=== PATIENT | female | born 1995 | race American Indian/Alaskan Native ===

== ENCOUNTER 2016-11-17 18:40 | Emergency (ER) | payer MEDICAID ==
[2016-11-17 18:46] VITALS: RESP 18; TEMP 98.6; O2SAT 100
[2016-11-17] MEDS ORDERED: Sodium Chloride 0.9% 1,000 ML IV STA (19:01)
--- NOTE | 2016-11-17 19:02 | ED PDOC ---
Arrival/HPI - General Chief Complaint: Flu-like Symptoms Time Seen by Provider: 11/17/16 18:50 Historian: Patient - History of Present Illness Narrative History of Present Illness (Text): 11/17/16 19:05 21 year old female, whose past medical history includes asthma, presents to emergency department complaining of flu-like symptoms for the past week. She states that she has migraines, on and off fevers, chills, nasal congestion, generalized weakness, and body aches. She denies any nausea, vomiting and any other complaints at this time. PMD: Dr. Tenorio Time/Duration: 1 week Symptom Onset: Gradual Symptom Course: Unchanged Activities at Onset: Light Context: Home Past Medical History - Provider Review Nursing Documentation Reviewed: Yes - Infectious Disease Hx of Infectious Diseases: None - Cardiac Hx Cardiac Disorders: No - Pulmonary Hx Respiratory Disorders: Yes Hx Asthma: Yes - Neurological Hx Neurological Disorder: No - HEENT Hx HEENT Disorder: No - Renal Hx Renal Disorder: No - Endocrine/Metabolic Hx Endocrine Disorders: No - Hematological/Oncological Hx Blood Disorders: No - Integumentary Hx Dermatological Disorder: No - Musculoskeletal/Rheumatological Hx Musculoskeletal Disorders: No - Gastrointestinal Hx Gastrointestinal Disorders: No - Genitourinary/Gynecological Hx Genitourinary Disorders: Yes Hx Urinary Tract Infection: Yes - Psychiatric Hx Psychophysiologic Disorder: Yes Hx Anxiety: Yes Hx Depression: Yes Hx Substance Use: Yes ("weed") - Anesthesia Hx Anesthesia: No Hx Anesthesia Reactions: No Family/Social History - Physician Review Nursing Documentation Reviewed: Yes Family/Social History: No Known Family HX Smoking Status: Never Smoked Hx Alcohol Use: Yes Frequency of alcohol use: Socially Hx Substance Use: Yes ("weed") Allergies/Home Meds Allergies/Adverse Reactions: Allergies Penicillins Allergy (Verified 11/17/16 18:47) ANAPHYLAXIS Home Medications: Home Meds Medication Instructions Recorded Confirmed Albuterol HFA [Ventolin HFA 90 1 puff IH PRN PRN 11/17/16 11/17/16 mcg/actuation (8 g)] Review of Systems - Physician Review All systems were reviewed & negative as marked: Yes Physical Exam - Physical Exam Narrative Physical Exam (Text): - Review of Systems Constitutional: Fevers, chills, generalized weakness absent: Fatigue, Weight Change Eyes: Normal ENT: nasal congestion Respiratory: Normal absent: SOB, Cough, Sputum Cardiovascular: Normal absent: Chest pain, Palpitations, Syncope Gastrointestinal: Normal absent: Abdominal pain, Diarrhea, Nausea, Vomiting Genitourinary: Normal. absent: Dysuria, Frequency, Hematuria Musculoskeletal: Arthralgias Skin: Normal Neurological: migraines absent: Focal Weakness Endocrine: Normal Hemo/Lymphatic: Normal Psychiatric: Normal - Physical exam Patient appears age appropriate, speaking full sentences without difficulty - Systems Exam Head: Present: Atraumatic, Normocephalic Pupils: Present: PERRL Extraocular Muscles: Present: EOMI Conjunctiva: Present: Normal Mouth: Present: Moist Mucous Membranes Neck: Present: Normal Range of Motion. No: MIDLINE TENDERNESS, Paraspinal Tenderness Respiratory/Chest: Present: Clear to Auscultation, Good Air Exchange. No: Respiratory Distress, Accessory Muscle Use, Tachypneic Cardiovascular: Present: Regular Rate and Rhythm, Normal S1, S2, Peripheral Pulses Present. No: Murmurs Abdomen: Present: Normal Bowel Sounds, No: Tenderness, Peritoneal Signs, Rebound, Guarding, Distention Back: Present: Normal Inspection. No: Midline Tenderness, Paraspinal Tenderness Upper Extremity: Present: Normal Inspection. No: Cyanosis, Edema Lower Extremity: Present: Normal Inspection. No: Edema Neurological: Present: GCS=15, Speech Normal, cranial nerves II through XII fully intact with no cerebellar abnormality, neuro-sensory fully intact. No focal neurological deficits. Skin: Present: Warm, Dry, Normal Color. No: Rashes Lymphatic: Present: OX3, NI, NC Psychiatric: Present: Alert, Oriented x 3, Normal Insight, Normal Concentration Vital Signs Reviewed: Yes Vital Signs Temp Pulse Resp BP Pulse Ox 11/17/16 20:34 98.6 F 80 18 109/76 100 11/17/16 18:46 98.6 F 75 18 119/74 100 Temperature: Afebrile Blood Pressure: Normal Pulse: Regular Respiratory Rate: Normal Appearance: Positive for: Well-Appearing, Non-Toxic, Comfortable Pain Distress: None Mental Status: Positive for: Alert and Oriented X 3 Medical Decision Making ED Course and Treatment: 11/17/16 19:14 Impression: 21 year old female presents to the emergency department complaining of flu-like symptoms x1 week. Pt afebrile with no acute physical exam findings. She reports that she has a history of asthma, however she is not complaining of any cough, shortness of breath, and has no wheezing on examination. Patient has clear breath sounds bilaterally with good inspiratory and expiratory effort. Differential Diagnosis included but are not limited to: dehydration, URI, influenza (1 week duration, no rapid flu ordered) Plan: -- labs -- Chest X-Ray -- blood culture -- Urinalysis -- Reassess and disposition Prior Visits: No previous records. Progress Notes: Chest XRay CXR Impression: As read by me, no pneumothorax, no pneumonia, no cardiomegaly, no infiltrates 11/17/16 20:42 Patient has no acute findings on her labs. On reevaluation, she states that she feels much better and feels comfortable being discharged home. Pt states she understands to return to the ER right away for new or worsening symptoms or for inability to f/u with PMD or specialist as instructed. Patient states that she fully agrees with and understands discharge instructions. States that she agrees with the plan and disposition. Verbalized and repeated discharge instructions and plan. I have given the patient opportunity to ask any additional questions. - Lab Interpretations Lab Results: 11/17/16 19:20 11/17/16 19:20 Lab Results 11/17/16 19:20: WBC 3.6 L, RBC 4.13, Hgb 12.7, Hct 36.5, MCV 88.4, MCH 30.8, MCHC 34.8, RDW 14.6 H, Plt Count 202, MPV 10.5, Gran % 36.4 L, Lymph % (Auto) 51.3 H, [place] % (Auto) 9.8 H, Eos % (Auto) 2.2, Baso % (Auto) 0.3, Gran # 1.30 L , Lymph # 1.8, [place] # 0.4, Eos # 0.1, Baso # 0.01, PT 11.3, INR 1.05, APTT 31.1 H, Sodium 140, Potassium 3.6, Chloride 102, Carbon Dioxide 26, Anion Gap 16, BUN 9, Creatinine 0.6, Est GFR ( Amer) > 60, Est GFR (Non-Af Amer) > 60, Random Glucose 88, Calcium 8.9, Total Bilirubin 0.4, AST 37, ALT 31, Alkaline Phosphatase 54, Total Protein 8.3, Albumin 4.5, Globulin 3.8, Albumin/Globulin Ratio 1.2 11/17/16 19:15: Urine Color Yellow, Urine Appearance Clear, Urine pH 6.5, Ur Specific [place] >= 1.030, Urine Protein 100 H, Urine Glucose (UA) Negative, Urine Ketones 15 H, Urine Blood Negative, Urine Nitrate Negative, Urine Bilirubin Negative, Urine Urobilinogen 0.2, Ur Leukocyte Esterase Negative, Urine RBC 0 - 2, Urine WBC 0 - 2, Ur Epithelial Cells 1 - 3 I have reviewed the lab results: Yes - RAD Interpretation Radiology Orders: 11/17/16 19:01 CHEST PORTABLE [RAD] Stat - Medication Orders Current Medication Orders: Discontinued Medications Sodium Chloride (Sodium Chloride 0.9%) 1,000 mls @ 1,000 mls/hr IV .Q1H STA Stop: 11/17/16 20:00 Last Admin: 11/17/16 19:14 Dose: 1,000 MLS/HR eMAR Start Stop Document 11/17/16 19:14 SE (Rec: 11/17/16 19:14 SE [id number]) Intravenous Solution Start Date 11/17/16 Start Time 19:14 Ketorolac Tromethamine (Toradol) 30 mg IVP STAT STA Stop: 11/17/16 19:02 Last Admin: 11/17/16 19:22 Dose: 30 MG IVP Administration Document 11/17/16 19:22 SE (Rec: 11/17/16 19:22 SE [id number]) Charges for Administration # of IVP Administrations 1 - Scribe Statement The provider has reviewed the documentation as recorded by the Shaun Bryant training under Chance Pimentel All medical record entries made by the Shaun were at my direction and personally dictated by me. I have reviewed the chart and agree that the record accurately reflects my personal performance of the history, physical exam, medical decision making, and the department course for this patient. I have also personally directed, reviewed, and agree with the discharge instructions and disposition. Disposition/Present on Arrival - Present on Arrival Any Indicators Present on Arrival: No History of DVT/PE: No History of Uncontrolled Diabetes: No Urinary Catheter: No History of Decub. Ulcer: No History Surgical Site Infection Following: None - Disposition Have Diagnosis and Disposition been Completed?: Yes Diagnosis: Flu-like symptoms Disposition: HOME/ ROUTINE Disposition Time: 20:46 Patient Plan: Discharge Condition: GOOD Discharge Instructions (ExitCare): Fever in Adults (ED) Additional Instructions: Please take [id number] Motrin or Tylenol for your symptoms. Forms: WORK NOTE
[2016-11-17 19:28] LABS: ADD MANUAL DIFF? NO
[2016-11-17 19:38] LABS: PH,URINE 6.5 (4.7-8.0); URINE BILIRUBIN NEGATIVE (NEGATIVE); URINE BLOOD NEGATIVE (NEGATIVE); URINE GLUCOSE (UA) NEGATIVE (NEGATIVE); URINE KETONE 15 mg/dL (NEGATIVE); URINE LEUKOCYTE ESTERASE NEGATIVE Leu/uL (NEGATIVE); URINE PROTEIN 100 mg/dL (<30 mg/dL); URINE UROBILINOGEN 0.2 E.U./dL (<1 E.U./dL)
[2016-11-17 19:42] LABS: BASO # 0.01 K/mm3 (0.0-2.0); BASO % 0.3 % (0.0-3.0); EOS # 0.1 (0.0-0.7); EOS % 2.2 % (1.5-5.0); GRAN % 36.4 % (50.0-68.0); HEMATOCRIT 36.5 % (36.0-48.0); LYMPH # 1.8 (1.2-3.4); LYMPH % 51.3 % (22.0-35.0); MEAN CELL VOLUME 88.4 fL (80.0-105.0); MEAN CORPUSCULAR HEMOGLOBIN 30.8 pg (25.0-35.0); MEAN CORPUSCULAR HGB CONC 34.8 g/dl (31.0-37.0); MEAN PLATELET VOLUME 10.5 fl (7.0-11.0); MONO # 0.4 (0.1-0.6); MONO % 9.8 % (1.0-6.0); PLATELET COUNT 202 10^3/uL (120.0-450.0); RED CELL DISTRIBUTION WIDTH 14.6 % (11.5-14.5); WHITE BLOOD COUNT 3.6 10^3/ul (4.5-11.0)
[2016-11-17 19:45] LABS: URINE APPEARANCE CLEAR (CLEAR); URINE COLOR YELLOW (YELLOW)
[2016-11-17 19:48] LABS: INR 1.05 (0.93-1.08); PARTIAL THROMBOPLASTIN TIME 31.1 Seconds (23.7-30.8)
[2016-11-17 19:54] LABS: ALB/GLOB RATIO 1.2 (1.1-1.8); ALKALINE PHOSPHATASE 54 U/L (38-133); ALT/SGPT 31 U/L (7-56); AST/SGOT 37 U/L (15-39); BILIRUBIN,TOTAL 0.4 mg/dL (0.2-1.3); BLOOD UREA NITROGEN 9 mg/dL (7-21); CALCIUM 8.9 mg/dL (8.4-10.5); CARBON DIOXIDE 26 mmol/L (21-33); CHLORIDE 102 mmol/L (98-107); GFR AFRICAN-AMERICAN > 60; GLUCOSE,RANDOM 88 mg/dL (70-110); POTASSIUM 3.6 mmol/L (3.6-5.0); SODIUM 140 mmol/L (132-148); TOTAL PROTEIN 8.3 g/dL (5.8-8.3)
[2016-11-17 20:09] LABS: URINE RBC 0 - 2 /hpf (0-2); URINE WBC 0 - 2 /hpf (0-6)
[2016-11-17 20:37] VITALS: BP 109/76; PULSE 80
--- NOTE | 2016-11-18 08:48 | RAD ---
HISTORY: f/c COMPARISON: No prior. FINDINGS: LUNGS: No active pulmonary disease. PLEURA: No significant pleural effusion identified, no pneumothorax apparent. CARDIOVASCULAR: Normal. OSSEOUS STRUCTURES: No significant abnormalities. VISUALIZED UPPER ABDOMEN: Normal. OTHER FINDINGS: None. IMPRESSION: No active disease.
== END 2016-11-17 20:51 | disposition home or self-care (01) ==
LOC: ED 18:40
DX: J11.1 Influenza due to unidentified influenza virus with other respiratory manifestations (principal)
CPT/HCPCS: 71010; 80053; 81001; 85025; 85610; 85730; 87040; 96374; 99284; J1885; J7040

== ENCOUNTER 2016-12-12 11:34 | Emergency (ER) | payer MEDICAID ==
[2016-12-12 11:43] VITALS: TEMP 98.7
--- NOTE | 2016-12-12 12:23 | ED PDOC ---
Arrival/HPI - General Chief Complaint: Abdominal Pain Time Seen by Provider: 12/12/16 12:11 Historian: Patient - History of Present Illness Narrative History of Present Illness (Text): 12/12/16 12:20 This 21 yo female with pmh herpes, and asthma, presents to this ED c/o pelvic pain, and b/l lower back pain x 5 days. Patient also stated she is late 3 days for her menses. Patient stated urinary frequency and urgency for 5 days. Patient is trying to get within last 4 weeks. Patient denies fever, sob, cp, n/v/d, flank pain, vaginal discharge, dizziness, or abnormal gait. 12/12/16 14:12 Past Medical History - Provider Review Nursing Documentation Reviewed: Yes - Infectious Disease Hx of Infectious Diseases: None - Cardiac Hx Cardiac Disorders: No - Pulmonary Hx Respiratory Disorders: Yes Hx Asthma: Yes - Neurological Hx Neurological Disorder: No - HEENT Hx HEENT Disorder: No - Renal Hx Renal Disorder: No - Endocrine/Metabolic Hx Endocrine Disorders: No - Hematological/Oncological Hx Blood Disorders: No - Integumentary Hx Dermatological Disorder: No - Musculoskeletal/Rheumatological Hx Musculoskeletal Disorders: No - Gastrointestinal Hx Gastrointestinal Disorders: No - Genitourinary/Gynecological Hx Genitourinary Disorders: Yes Hx Urinary Tract Infection: Yes Other/Comment: GENITAL HERPES - Psychiatric Hx Psychophysiologic Disorder: Yes Hx Anxiety: Yes Hx Depression: Yes Hx Substance Use: Yes ("weed") - Anesthesia Hx Anesthesia: No Hx Anesthesia Reactions: No Family/Social History - Physician Review Nursing Documentation Reviewed: Yes Family/Social History: No Known Family HX Smoking Status: Heavy Smoker > 10 Cigarettes Daily Hx Alcohol Use: Yes Hx Substance Use: Yes ("weed") Allergies/Home Meds Allergies/Adverse Reactions: Allergies Penicillins Allergy (Verified 12/12/16 11:36) ANAPHYLAXIS Home Medications: Home Meds Medication Instructions Recorded Confirmed valACYclovir [Valtrex] 500 mg PO DAILY 12/12/16 12/12/16 Review of Systems - Review of Systems Constitutional: Normal. absent: Fatigue, Weight Change, Fevers Eyes: Normal ENT: Normal Respiratory: Normal. absent: SOB, Cough Cardiovascular: Normal. absent: Chest Pain, Palpitations Gastrointestinal: Normal. absent: Abdominal Pain, Nausea, Vomiting Genitourinary Female: Dysuria, Frequency, Vaginal Discharge (white discharge). absent: Hematuria, Urine Output Changes, Vaginal Bleeding Musculoskeletal: Normal. absent: Back Pain Skin: Normal. absent: Rash Neurological: Normal Endocrine: Normal Hemo/Lymphatic: Normal Psychiatric: Normal Physical Exam Vital Signs Temp Pulse Resp BP Pulse Ox 12/12/16 15:23 70 16 112/76 100 12/12/16 11:44 98.7 F 93 H 18 117/73 99 12/12/16 11:38 98.7 F 93 H 16 117/73 99 Temperature: Afebrile Blood Pressure: Normal Pulse: Regular Respiratory Rate: Normal Appearance: Positive for: Well-Appearing, Non-Toxic, Comfortable Pain Distress: None Mental Status: Positive for: Alert and Oriented X 3 - Systems Exam Head: Present: Atraumatic, Normocephalic Pupils: Present: PERRL Extroacular Muscles: Present: EOMI Conjunctiva: Present: Normal Mouth: Present: Moist Mucous Membranes Neck: Present: Normal Range of Motion Respiratory/Chest: Present: Clear to Auscultation, Good Air Exchange. No: Respiratory Distress, Accessory Muscle Use Cardiovascular: Present: Regular Rate and Rhythm, Normal S1, S2. No: Murmurs Abdomen: Present: Normal Bowel Sounds. 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 No: Vaginal Bleeding, Adenexal Tenderness, Adenexal Mass, Odor Back: Present: Normal Inspection. No: CVA Tenderness, Midline Tenderness, Paraspinal Tenderness, Pain with Leg Raise Upper Extremity: Present: Normal Inspection, Normal ROM, NORMAL PULSES, Neurovascularly Intact, Capillary Refill < 2s. No: Cyanosis, Edema Lower Extremity: Present: Normal Inspection, NORMAL PULSES, Normal ROM, Capillary Refill < 2 s. No: Edema Neurological: Present: GCS=15, CN II-XII Intact, Speech Normal, Motor Func Grossly Intact, Normal Sensory Function, Normal Cerebellar Funct, Gait Normal, Memory Normal Skin: Present: Warm, Dry, Normal Color. No: Rashes Psychiatric: Present: Alert, Oriented x 3, Normal Insight, Normal Concentration Medical Decision Making ED Course and Treatment: 12/12/16 14:17 Re-evaluation. Patient feels better. Discussed results and plan with patient who expresses understanding. All questions answered and there is agreement with the plan to discharge home with instructions. Patient stable for discharge. Return if symptoms persist or worsen. Patient came c/o pelvic pain, and she feels she may be . She admits a vaginal white discharge. Patient also note urinary frequency and urgency. Physical exam demonstrates moderate vaginal white discharge. No vaginal bleeding. (+) CMT. Patient was recommended to take prophylactic STD treatment. Patient agrees with plan. Patient was recommended to avoid sexual intercourse till she knows STD result, and to follow up private [facility] in 3-5 days. She was recommended to have HIV test, Syphilis, hepatitis, or other sexual transmitted disease. To return to emergency if symptoms worsen. Re-evaluation Time: 14:17 Reassessment Condition: Re-examined, Improved - Lab Interpretations Microbiology Results: Microbiology Results 12/12/16 12:30 Urine,Patel Urine Culture - Final No Growth (<1,000 CFU/ML) Lab Results: Lab Results 12/12/16 12:30: Urine HCG, Qual Negative 12/12/16 12:30: Urine Color Yellow, Urine Appearance Clear, Urine pH 6.0, Ur Specific [place] >= 1.030, Urine Protein 100 H, Urine Glucose (UA) Negative, Urine Ketones 15 H, Urine Blood Trace-intact H, Urine Nitrate Negative, Urine Bilirubin Negative, Urine Urobilinogen 0.2, Ur Leukocyte Esterase Trace H, Urine RBC 0 - 2, Urine WBC 2 - 5, Ur Epithelial Cells Many, Urine Bacteria Few I have reviewed the lab results: Yes Interpretation: Abnormal lab values - Medication Orders Current Medication Orders: Discontinued Medications Azithromycin (Zithromax) 2,000 mg PO STAT STA PRN Reason: Protocol Stop: 12/12/16 14:22 Last Admin: 12/12/16 14:59 Dose: 2,000 mg Doxycycline Hyclate (Doryx) 100 mg PO STAT STA PRN Reason: Protocol Stop: 12/12/16 13:35 Last Admin: 12/12/16 14:59 Dose: 100 mg Nitrofurantoin Macrocrystals (Macrobid) 100 mg PO STAT STA Stop: 12/12/16 14:24 Last Admin: 12/12/16 14:59 Dose: 100 mg Disposition/Present on Arrival - Present on Arrival Any Indicators Present on Arrival: No History of DVT/PE: No History of Uncontrolled Diabetes: No Urinary Catheter: No History of Decub. Ulcer: No History Surgical Site Infection Following: None - Disposition Have Diagnosis and Disposition been Completed?: Yes Diagnosis: Vaginal discharge, Urinary tract infection Disposition: HOME/ ROUTINE Disposition Time: 14:17 Condition: GOOD Discharge Instructions (ExitCare): Vaginal Discharge (ED) Additional Instructions: Call private [facility] doctor for follow up visit in 1-2 days. STD test result will be ready in 3-5 days. Take medication with food, and avoid sun light. Avoid sexual intercourse till clear by [facility] doctor. Return to emergency if symptoms worsen. Prescriptions: Doxycycline Monohydrate 100 mg PO BID #28 tablet Nitrofurantoin Macrocrystals [Macrobid] 100 mg PO BID #14 cap Referrals: Lamont Tenorio MD [Primary Care Provider] - [facility] - Follow up with primary Forms: WORK NOTE
[2016-12-12 12:47] LABS: URINE BILIRUBIN NEGATIVE (NEGATIVE); URINE BLOOD TRACE-INTACT (NEGATIVE); URINE GLUCOSE (UA) NEGATIVE (NEGATIVE); URINE KETONE 15 mg/dL (NEGATIVE); URINE LEUKOCYTE ESTERASE TRACE Leu/uL (NEGATIVE); URINE PROTEIN 100 mg/dL (<30 mg/dL); URINE UROBILINOGEN 0.2 E.U./dL (<1 E.U./dL)
[2016-12-12 13:02] LABS: URINE APPEARANCE CLEAR (CLEAR); URINE COLOR YELLOW (YELLOW)
[2016-12-12 13:25] LABS: URINE BACTERIA FEW (NEG); URINE EPITHELIAL CELLS MANY /hpf (0-5); URINE RBC 0 - 2 /hpf (0-2)
[2016-12-12] MEDS ORDERED: cefTRIAXone (Rocephin) 250 mg Inj IM STA (13:33)
[2016-12-12 15:24] VITALS: BP 112/76; PULSE 70; RESP 16; O2SAT 100
== END 2016-12-12 15:23 | disposition home or self-care (01) ==
LOC: ED 11:34
DX: N89.8 Other specified noninflammatory disorders of vagina (principal); N39.0 Urinary tract infection, site not specified

== ENCOUNTER 2017-06-07 11:47 | Emergency (ER) | payer MEDICAID ==
[2017-06-07] MEDS ORDERED: Sodium Chloride 0.9% 1,000 ML IV STA (12:13)
--- NOTE | 2017-06-07 12:18 | ED PDOC ---
Arrival/HPI - General Time Seen by Provider: 06/07/17 11:49 Historian: Patient - History of Present Illness Narrative History of Present Illness (Text): 06/07/17 12:14 A 21 year old female whose past medical history includes herpes and asthma, presents to the emergency department with chest pain since last night. The patient states that the pain is intermittent. She notes associated vomiting, subjective fever, and a productive cough. The patient states that her last menstrual period was at the beginning of this month.The patient denies chills, headache, dizziness, shortness of breath, dyspnea on exertion, abdominal pain, nausea, vomiting, diarrhea, back pain, neck pain, urinary/bowel changes, or any other complaint. Time/Duration: Other (Last Night) Symptom Onset: Sudden Symptom Course: Unchanged Activities at Onset: Rest, Light Context: Home Past Medical History - Provider Review Nursing Documentation Reviewed: Yes - Infectious Disease Hx of Infectious Diseases: None - Cardiac Hx Cardiac Disorders: No - Pulmonary Hx Respiratory Disorders: Yes Hx Asthma: Yes - Neurological Hx Neurological Disorder: No - HEENT Hx HEENT Disorder: No - Renal Hx Renal Disorder: No - Endocrine/Metabolic Hx Endocrine Disorders: No - Hematological/Oncological Hx Blood Disorders: No - Integumentary Hx Dermatological Disorder: No - Musculoskeletal/Rheumatological Hx Musculoskeletal Disorders: No - Gastrointestinal Hx Gastrointestinal Disorders: No - Genitourinary/Gynecological Hx Genitourinary Disorders: Yes Hx Urinary Tract Infection: Yes Other/Comment: GENITAL HERPES - Psychiatric Hx Psychophysiologic Disorder: Yes Hx Anxiety: Yes Hx Depression: Yes Hx Substance Use: Yes ("weed") - Anesthesia Hx Anesthesia: No Hx Anesthesia Reactions: No Family/Social History - Physician Review Nursing Documentation Reviewed: Yes Family/Social History: No Known Family HX Smoking Status: Heavy Smoker > 10 Cigarettes Daily Hx Alcohol Use: Yes Hx Substance Use: Yes ("weed") Allergies/Home Meds Allergies/Adverse Reactions: Allergies Penicillins Allergy (Verified 12/12/16 11:36) ANAPHYLAXIS Home Medications: Home Meds Medication Instructions Recorded Confirmed No Known Home Med 06/07/17 06/07/17 Review of Systems - Physician Review All systems were reviewed & negative as marked: Yes - Review of Systems Constitutional: absent: Night Sweats ENT: absent: Sore Throat Respiratory: Cough. absent: SOB Cardiovascular: Chest Pain. absent: GARZA Gastrointestinal: Vomiting. absent: Abdominal Pain, Stool Changes, Diarrhea, Nausea Genitourinary Female: absent: Urine Output Changes Musculoskeletal: absent: Back Pain, Neck Pain Neurological: absent: Headache, Dizziness Physical Exam Vital Signs Reviewed: Yes Vital Signs Pulse Resp BP Pulse Ox 06/07/17 15:20 75 18 123/78 100 Temperature: Afebrile Blood Pressure: Normal Pulse: Regular Respiratory Rate: Normal Appearance: Positive for: Well-Appearing, Non-Toxic, Comfortable Pain Distress: None Mental Status: Positive for: Alert and Oriented X 3 - Systems Exam Head: Present: Atraumatic, Normocephalic Pupils: Present: PERRL Extroacular Muscles: Present: EOMI Conjunctiva: Present: Normal Mouth: Present: Moist Mucous Membranes Neck: Present: Normal Range of Motion Respiratory/Chest: Present: Clear to Auscultation, Good Air Exchange. No: Respiratory Distress, Accessory Muscle Use Cardiovascular: Present: Regular Rate and Rhythm, Normal S1, S2. No: Murmurs Abdomen: Present: Normal Bowel Sounds. No: Tenderness, Distention, Peritoneal Signs Back: Present: Normal Inspection Upper Extremity: Present: Normal Inspection. No: Cyanosis, Edema Lower Extremity: Present: Normal Inspection. No: Edema Neurological: Present: GCS=15, CN II-XII Intact, Speech Normal Skin: Present: Warm, Dry, Normal Color. No: Rashes Psychiatric: Present: Alert, Oriented x 3, Normal Insight, Normal Concentration Medical Decision Making ED Course and Treatment: 06/07/17 12:19 Impression: A 21 year old female presents to the emergency department with chest pain, vomiting, and cough since last night. Plan: -- EKG -- Chest X-ray -- Labs -- Urinalysis -- IV Fluids -- Reassess and disposition Prior Visits: Notes and results from previous visits were reviewed. Patient was last seen in the emergency department on 12/12/2016. The patient was seen in the emergency department fro pelvic and lower back pain. The patient was discharged home on Macrobid and Doxycycline Monohydrate. She was advised to follow up with her PMD and [facility] ([facility]IVING [employer]ILL[employer] ADVISOR). Progress Notes: EKG: Ordered, reviewed, and independently interpreted the EKG. Rate : 111 BPM Rhythm : Sinus Tachycardia - Lab Interpretations Lab Results: 06/07/17 12:18 06/07/17 12:18 Lab Results 06/07/17 14:20: Urine Color Yellow, Urine Appearance Turbid, Urine pH 7.0, Ur Specific [place] >= 1.030, Urine Protein 100 H, Urine Glucose (UA) Negative, Urine Ketones 15 H, Urine Blood Trace-intact H, Urine Nitrate Negative, Urine Bilirubin Negative, Urine Urobilinogen 1.0 H, Ur Leukocyte Esterase Small H, Urine RBC 0 - 2, Urine WBC 5 - 10, Ur Epithelial Cells Many, Urine Bacteria Many , Urine HCG, Qual Negative 06/07/17 12:18: Sodium 142, Potassium 4.4, Chloride 106, Carbon Dioxide 24, Anion Gap 16, BUN 8, Creatinine 0.6 L, Est GFR ( Amer) > 60, Est GFR (Non -Af Amer) > 60, Random Glucose 101, Calcium 10.3, Magnesium 2.1, Total Bilirubin 0.7, AST 29, ALT 16, Alkaline Phosphatase 52, Lactate Dehydrogenase 348, Total Creatine Kinase 86, Troponin I < 0.01, Total Protein 8.8 H, Albumin 5.3 H, Globulin 3.6, Albumin/Globulin Ratio 1.5 06/07/17 12:18: PT 12.4, INR 1.12 H, APTT 31.0, D-Dimer, Quantitative < 200 06/07/17 12:18: WBC 10.0 D, RBC 4.24, Hgb 13.2, Hct 38.2, MCV 90.1, MCH 31.1, MCHC 34.6, RDW 15.0 H, Plt Count 245, MPV 9.6, Gran % 81.3 H, Lymph % (Auto) 13.6 L, [place] % (Auto) 3.5, Eos % (Auto) 1.4 L, Baso % (Auto) 0.2, Gran # 8.09 H , Lymph # 1.4, [place] # 0.4, Eos # 0.1, Baso # 0.02 I have reviewed the lab results: Yes - RAD Interpretation Radiology Orders: 06/07/17 12:12 CHEST PORTABLE [RAD] Stat - EKG Interpretation Interpreted by ED Physician: Yes Type: 12 lead EKG - Medication Orders Current Medication Orders: Discontinued Medications Acetaminophen (Tylenol 325mg Tab) 975 mg PO STAT STA Stop: 06/07/17 12:22 Last Admin: 06/07/17 13:05 Dose: 975 mg MAR Pain/Vitals Document 06/07/17 13:05 IT (Rec: 06/07/17 13:05 IT [id number]) Pain Reassessment Is This A Pain ReAssessment? No Sleep Is patient sleeping during reassessment? No Presence of Pain Presence of Pain Yes Pain Scale Used Pain Scale Used Numeric Location Left, Right or Bilateral Left Pain Location Body Site Chest Description Intermittent Sodium Chloride (Sodium Chloride 0.9%) 1,000 mls @ 999 mls/hr IV .Q1H1M STA Stop: 06/07/17 13:13 Last Admin: 06/07/17 12:45 Dose: 999 mls/hr eMAR Start Stop Document 06/07/17 12:45 IT (Rec: 06/07/17 12:45 IT [id number]) Intravenous Solution Start Date 06/07/17 Start Time 12:45 End Date 06/07/17 End time 13:45 Total Infusion Time 60 - Scribe Statement The provider has reviewed the documentation as recorded by the Shaun Donohue Provider Scribe Attestation: All medical record entries made by the Scribe were at my direction and personally dictated by me. I have reviewed the chart and agree that the record accurately reflects my personal performance of the history, physical exam, medical decision making, and the department course for this patient. I have also personally directed, reviewed, and agree with the discharge instructions and disposition. Disposition/Present on Arrival - Present on Arrival Any Indicators Present on Arrival: No History of DVT/PE: No History of Uncontrolled Diabetes: No Urinary Catheter: No History Surgical Site Infection Following: None - Disposition Have Diagnosis and Disposition been Completed?: Yes Diagnosis: Chest pain Disposition: HOME/ ROUTINE Disposition Time: 15:44 Condition: STABLE Discharge Instructions (ExitCare): Chest Pain (ED) Additional Instructions: please follow up with your doctor/clinic and specialist. return to er with worsening symptoms or concerns. Referrals: [facility] [Outside] - Follow up with primary [facility] [Outside] - Follow up with primary [facility] [Outside] - Follow up with primary Lance Huynh MD [Staff Provider] - Follow up with primary Forms: [employer] (Italian)
[2017-06-07 12:31] LABS: BASO # 0.02 K/mm3 (0.0-2.0); BASO % 0.2 % (0.0-3.0); EOS # 0.1 (0.0-0.7); EOS % 1.4 % (1.5-5.0); GRAN # 8.09 (1.4-6.5); GRAN % 81.3 % (50.0-68.0); HEMATOCRIT 38.2 % (36.0-48.0); LYMPH # 1.4 (1.2-3.4); LYMPH % 13.6 % (22.0-35.0); MEAN CELL VOLUME 90.1 fl (80.0-105.0); MEAN CORPUSCULAR HEMOGLOBIN 31.1 pg (25.0-35.0); MEAN CORPUSCULAR HGB CONC 34.6 g/dl (31.0-37.0); MEAN PLATELET VOLUME 9.6 fl (7.0-11.0); MONO # 0.4 (0.1-0.6); MONO % 3.5 % (1.0-6.0)
[2017-06-07 12:41] LABS: ALB/GLOB RATIO 1.5 (1.1-1.8); ALKALINE PHOSPHATASE 52 U/L (38-126); ALT/SGPT 16 U/L (7-56); AST/SGOT 29 U/L (14-36); BILIRUBIN,TOTAL 0.7 mg/dL (0.2-1.3); BLOOD UREA NITROGEN 8 mg/dL (7-21); CALCIUM 10.3 mg/dL (8.4-10.5); CARBON DIOXIDE 24 mmol/L (21-33); CHLORIDE 106 mmol/L (98-107); GFR AFRICAN-AMERICAN > 60; GLUCOSE,RANDOM 101 mg/dL (70-110); MAGNESIUM 2.1 mg/dL (1.7-2.2); POTASSIUM 4.4 mmol/L (3.6-5.0); SODIUM 142 mmol/L (132-148); TOTAL PROTEIN 8.8 g/dL (5.8-8.3)
[2017-06-07 12:54] LABS: INR 1.12 (0.93-1.08); TROPONIN I < 0.01 ng/mL
[2017-06-07 13:12] LABS: D DIMER < 200 ng/mL (0-243)
[2017-06-07 14:46] LABS: URINE BILIRUBIN NEGATIVE (NEGATIVE); URINE BLOOD TRACE-INTACT (NEGATIVE); URINE GLUCOSE (UA) NEGATIVE (NEGATIVE); URINE KETONE 15 mg/dL (NEGATIVE); URINE LEUKOCYTE ESTERASE SMALL Leu/uL (NEGATIVE); URINE PROTEIN 100 mg/dL (<30 mg/dL)
[2017-06-07 14:48] LABS: URINE APPEARANCE TURBID (CLEAR); URINE COLOR YELLOW (YELLOW)
[2017-06-07 14:51] LABS: URINE BACTERIA MANY (NEG); URINE EPITHELIAL CELLS MANY /hpf (0-5); URINE RBC 0 - 2 /hpf (0-2)
--- NOTE | 2017-06-07 15:01 | RAD ---
HISTORY: Chest pain COMPARISON: 11/17/2016. FINDINGS: LUNGS: The lungs are well inflated and clear. PLEURA: No significant pleural effusion identified, no pneumothorax apparent. CARDIOVASCULAR: Normal. OSSEOUS STRUCTURES: No significant abnormalities. VISUALIZED UPPER ABDOMEN: Normal. OTHER FINDINGS: None. IMPRESSION: No active pulmonary disease.
[2017-06-07 15:35] VITALS: BP 123/78; PULSE 75; RESP 18; O2SAT 100
--- NOTE | 2017-06-08 09:03 | CARD ---
APPROVED REPORT EKG Measurement Heart [id number] <Conclusion> Sinus tachycardia RVCD Electrical artifact present
== END 2017-06-07 15:25 | disposition home or self-care (01) ==
LOC: ED 11:47
DX: R07.9 Chest pain, unspecified (principal); F17.210 Nicotine dependence, cigarettes, uncomplicated; Z88.0 Allergy status to penicillin
CPT/HCPCS: 71010; 80053; 81001; 82550; 83615; 83735; 84484; 84703; 85025; 85378; 85610; 85730; 87086; 93005; 96360; 99283; J7040

== ENCOUNTER 2017-11-17 16:33 | Emergency (ER) | payer MEDICAID, OTHER ==
--- NOTE | 2017-11-17 16:43 | ED PDOC ---
Arrival/HPI - General Historian: Patient - History of Present Illness Time/Duration: > month Symptom Onset: Sudden Symptom Course: Unchanged - General Time Seen by Provider: 11/17/17 16:37 - History of Present Illness Narrative History of Present Illness (Text): 11/17/17 16:40 22 year old female, with no significant PMH, pencillin allergy, nkda, who presents to the emergency department complaining of a late period since 30 days ago. Patient reports her LMP was on 10/11/2017. She states taking a home test today which was positive and decided to come to the emergency department for confirmation. Patient denies any abdominal pain, pelvic pain, vaginal bleeding, vaginal discharge, pelvic pain, or trauma/falls. (Ignacio Sherman) Past Medical History - Provider Review Nursing Documentation Reviewed: Yes - Infectious Disease Hx of Infectious Diseases: None - Cardiac Hx Cardiac Disorders: No - Pulmonary Hx Respiratory Disorders: Yes Hx Asthma: Yes - Neurological Hx Neurological Disorder: No - HEENT Hx HEENT Disorder: No - Renal Hx Renal Disorder: No - Endocrine/Metabolic Hx Endocrine Disorders: No - Hematological/Oncological Hx Blood Disorders: No - Integumentary Hx Dermatological Disorder: No - Musculoskeletal/Rheumatological Hx Musculoskeletal Disorders: No - Gastrointestinal Hx Gastrointestinal Disorders: No - Genitourinary/Gynecological Hx Genitourinary Disorders: Yes Hx Urinary Tract Infection: Yes Other/Comment: GENITAL HERPES - Psychiatric Hx Psychophysiologic Disorder: Yes Hx Anxiety: Yes Hx Depression: Yes Hx Substance Use: Yes ("weed") - Anesthesia Hx Anesthesia: No Hx Anesthesia Reactions: No Family/Social History - Physician Review Nursing Documentation Reviewed: Yes Family/Social History: Unknown Family HX Smoking Status: Heavy Smoker > 10 Cigarettes Daily Hx Alcohol Use: Yes Hx Substance Use: Yes ("weed") Allergies/Home Meds Allergies/Adverse Reactions: Allergies Penicillins Allergy (Verified 12/12/16 11:36) ANAPHYLAXIS Home Medications: Home Meds Medication Instructions Recorded Confirmed No Known Home Med 06/07/17 11/17/17 Review of Systems - Physician Review All systems were reviewed & negative as marked: Yes - Review of Systems Constitutional: absent: Fatigue, Fevers Respiratory: absent: SOB Cardiovascular: absent: Chest Pain Gastrointestinal: absent: Abdominal Pain, Diarrhea, Nausea, Vomiting Musculoskeletal: absent: Arthralgias, Back Pain Skin: absent: Rash, Pruritis Psychiatric: absent: Anxiety, Depression, Suicidal Ideation Physical Exam Vital Signs Reviewed: Yes Temperature: Afebrile Blood Pressure: Normal Pulse: Tachycardic Respiratory Rate: Normal Appearance: Positive for: Well-Appearing, Non-Toxic, Comfortable Pain Distress: None Mental Status: Positive for: Alert and Oriented X 3 - Systems Exam Head: Present: Atraumatic, Normocephalic Pupils: Present: PERRL Extroacular Muscles: Present: EOMI Conjunctiva: Present: Normal Mouth: Present: Moist Mucous Membranes Respiratory/Chest: Present: Clear to Auscultation, Good Air Exchange. No: Respiratory Distress, Accessory Muscle Use, Wheezes, Rales, Retracting, Rhonchi , Tachypneic Cardiovascular: Present: Regular Rate and Rhythm, Normal S1, S2. No: Murmurs Abdomen: No: Tenderness, Distention, Peritoneal Signs, Rebound, Guarding Genitourinary/Pelvic Exam: Present: Other (Pt. declined) Back: No: CVA Tenderness, Midline Tenderness, Paraspinal Tenderness Neurological: Present: GCS=15, CN II-XII Intact, Speech Normal Skin: Present: Warm, Dry, Normal Color. No: Rashes Psychiatric: Present: Alert, Oriented x 3, Normal Insight, Normal Concentration Vital Signs Temp Pulse Resp BP Pulse Ox 11/17/17 17:12 98.4 F 91 H 17 112/75 100 Medical Decision Making - Lab Interpretations I have reviewed the lab results: Yes ED Course and Treatment: 11/17/17 17:10 Impression: 22 year old female with late period. LMP: 10/11/2017. 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 Plan: -- Labs -- Urinalysis -- Reassess and disposition Progress Notes: 11/17/17 19:02 -Urine hcg is negative -Case and labs discussed with DR. Polanco about the UA and blood result, suggest to defer the yeast? in the urine to outpatient pmd and obgyn -UA show no UTI but there is yeast?, asymptomatic, discussed with the patient to have it repeat UA in 1-2 days and follow up with the obgyn as well. -Beta HCG 798.86, approx 4-5 weeks -Pt. has no abdominal or pelvic pain, no vaginal bleeding or discharge. -Discharge home with education on follow up with your own pmd and obgyn within 2 days, return to the ER for any new or worsening signs or symptoms. 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 - Scribe Statement The provider has reviewed the documentation as recorded by the Scribe - Scribe Statement Karen Raya Provider Scribe Attestation: All medical record entries made by the Scribe were at my direction and personally dictated by me. I have reviewed the chart and agree that the record accurately reflects my personal performance of the history, physical exam, medical decision making, and the department course for this patient. I have also personally directed, reviewed, and agree with the discharge instructions and disposition. (Ignacio Sherman) Disposition/Present on Arrival - Present on Arrival Any Indicators Present on Arrival: No History of DVT/PE: No History of Uncontrolled Diabetes: No Urinary Catheter: No History of Decub. Ulcer: No History Surgical Site Infection Following: None - Disposition Have Diagnosis and Disposition been Completed?: Yes Disposition Time: 17:13 Patient Plan: Discharge - Disposition Diagnosis: Disposition: HOME/ ROUTINE Patient Problems: Current Active Problems Problem Status Onset Acute Condition: GOOD Discharge Instructions (ExitCare): Medications and , Alcohol and Additional Instructions: -Discharge home with education on follow up with your own pmd and obgyn within 2 days, return to the ER for any new or worsening signs or symptoms. Referrals: Gisselle Stuart MD [Staff Provider] - Follow up with primary [facility] [place] [Outside] - Follow up with primary Forms: [employer]
[2017-11-17 17:11] VITALS: BMI 19.5
[2017-11-17 17:18] VITALS: TEMP 98.4
[2017-11-17 18:03] LABS: URINE BILIRUBIN NEGATIVE (NEGATIVE); URINE BLOOD NEGATIVE (NEGATIVE); URINE GLUCOSE (UA) NEGATIVE (NEGATIVE); URINE LEUKOCYTE ESTERASE NEGATIVE Leu/uL (NEGATIVE); URINE PROTEIN TRACE mg/dL (<30 mg/dL); URINE UROBILINOGEN 0.2 E.U./dL (<1 E.U./dL)
[2017-11-17 18:49] LABS: URINE APPEARANCE CLEAR (CLEAR); URINE COLOR YELLOW (YELLOW)
[2017-11-17 18:51] LABS: URINE AMORPHOUS SEDIMENT FEW; URINE BACTERIA MANY (NEG); URINE RBC 0 - 2 /hpf (0-2)
[2017-11-17 19:10] VITALS: BP 122/78; PULSE 86; RESP 18; O2SAT 98
== END 2017-11-17 19:09 | disposition home or self-care (01) ==
LOC: ED 16:33
DX: O26.91 Pregnancy related conditions, unspecified, first trimester (principal); Z3A.00 Weeks of gestation of pregnancy not specified

== ENCOUNTER 2018-08-21 14:05 | Emergency (ER) | payer MEDICAID ==
[2018-08-21 15:07] VITALS: RESP 18; O2SAT 100
[2018-08-21 15:08] VITALS: BMI 18.8
--- NOTE | 2018-08-21 15:31 | ED PDOC ---
Arrival/HPI - General Chief Complaint: Abdominal Pain Time Seen by Provider: 08/21/18 14:11 Historian: Patient - History of Present Illness Narrative History of Present Illness (Text): 08/21/18 15:28 23yo female with pmhx of Asthma who present with complaint of suprapubic abdominal pain pain x 3weeks. +Chills/sweats, back pain. States she was given unknown antibiotics a month ago for UTI, but never took it because she don't sw allow pills. She denies nausea, vomiting, hematuria, any other complaint. Past Medical History - Provider Review Nursing Documentation Reviewed: Yes - Infectious Disease Hx of Infectious Diseases: None - Cardiac Hx Cardiac Disorders: No - Pulmonary Hx Respiratory Disorders: Yes Hx Asthma: Yes - Neurological Hx Neurological Disorder: No - HEENT Hx HEENT Disorder: No - Renal Hx Renal Disorder: No Other/Comment: kidney infections - Endocrine/Metabolic Hx Endocrine Disorders: No - Hematological/Oncological Hx Blood Disorders: No - Integumentary Hx Dermatological Disorder: No - Musculoskeletal/Rheumatological Hx Musculoskeletal Disorders: No - Gastrointestinal Hx Gastrointestinal Disorders: No - Genitourinary/Gynecological Hx Genitourinary Disorders: Yes Hx Urinary Tract Infection: Yes Other/Comment: GENITAL HERPES'. right sided ovarian cyst - Psychiatric Hx Psychophysiologic Disorder: Yes Hx Anxiety: Yes Hx Depression: Yes Hx Substance Use: Yes ("weed") - Anesthesia Hx Anesthesia: No Hx Anesthesia Reactions: No Family/Social History - Physician Review Nursing Documentation Reviewed: Yes Family/Social History: Unknown Family HX Smoking Status: Heavy Smoker > 10 Cigarettes Daily Hx Alcohol Use: Yes Hx Substance Use: Yes ("weed") Allergies/Home Meds Allergies/Adverse Reactions: Allergies Penicillins Allergy (Verified 12/12/16 11:36) ANAPHYLAXIS Home Medications: Home Meds Medication Instructions Recorded Confirmed No Known Home Med 06/07/17 11/17/17 Review of Systems - Physician Review All systems were reviewed & negative as marked: Yes - Review of Systems Constitutional: Normal Eyes: Normal ENT: Normal Respiratory: Normal Cardiovascular: Normal Gastrointestinal: Abdominal Pain. absent: Constipation, Diarrhea, Nausea, Vomiting, Hematochezia, Hematemesis Genitourinary Female: Frequency. absent: Dysuria, Hematuria Musculoskeletal: Normal Skin: Normal Neurological: Normal Endocrine: Normal Hemo/Lymphatic: Normal Psychiatric: Normal Physical Exam Vital Signs Reviewed: Yes Vital Signs Temp Pulse Resp BP Pulse Ox 08/21/18 15:06 98.6 F 84 18 110/75 100 Temperature: Afebrile Blood Pressure: Normal Pulse: Regular Respiratory Rate: Normal Appearance: Positive for: Well-Appearing, Non-Toxic, Comfortable Pain Distress: None Mental Status: Positive for: Alert and Oriented X 3 - Systems Exam Head: Present: Atraumatic, Normocephalic Pupils: Present: PERRL Extroacular Muscles: Present: EOMI Conjunctiva: Present: Normal Mouth: Present: Moist Mucous Membranes Neck: Present: Normal Range of Motion Respiratory/Chest: Present: Clear to Auscultation, Good Air Exchange. No: Respiratory Distress, Accessory Muscle Use Cardiovascular: Present: Regular Rate and Rhythm, Normal S1, S2. No: Murmurs Abdomen: Present: Tenderness (Suprapubic tenderness), Normal Bowel Sounds, Rebound, Guarding, McBurney's Point Tender, Rovsing's Sign Present, Other (Soft). No: Distention, Peritoneal Signs Back: Present: Normal Inspection Upper Extremity: Present: Normal Inspection. No: Cyanosis, Edema Lower Extremity: Present: Normal Inspection. No: Edema Neurological: Present: GCS=15, CN II-XII Intact, Speech Normal Skin: Present: Warm, Dry, Normal Color. No: Rashes Psychiatric: Present: Alert, Oriented x 3, Normal Insight, Normal Concentration Medical Decision Making ED Course and Treatment: 08/21/18 20:07 Measures 7.62 x 4.36 x 4.99 cm. Normal in size and appearance. No fibroid or other mass lesion seen. Endometrium Measures 4.8 mm in diameter. Unremarkable. Right ovary Measures 3.68 x 2.41 x 2.97 cm. No solid mass. Normal flow. Left ovary Measures 1.79 x 2.88 x 3.29 cm. No solid mass. Normal flow. Other Findings None. Impression Unremarkable pelvic ultrasound. Disposition/Present on Arrival - Present on Arrival Any Indicators Present on Arrival: No History of DVT/PE: No History of Uncontrolled Diabetes: No Urinary Catheter: No History of Decub. Ulcer: No History Surgical Site Infection Following: None - Disposition Have Diagnosis and Disposition been Completed?: Yes Diagnosis: Pelvic pain Disposition: HOME/ ROUTINE Disposition Time: 20:10 Patient Plan: Discharge Condition: STABLE Discharge Instructions (ExitCare): Acute Abdomen (Belly Pain), Adult (DC) Additional Instructions: Follow up with your doctor Return to ED for any new or worsening symptoms Referrals: Kareen Collado MD [Medical Doctor] - Follow up with primary Forms: [employer] (Sami)
[2018-08-21 16:41] LABS: PH,URINE 7.5 (4.7-8.0); URINE BILIRUBIN NEGATIVE (NEGATIVE); URINE BLOOD LARGE (NEGATIVE); URINE GLUCOSE (UA) NEGATIVE (NEGATIVE); URINE LEUKOCYTE ESTERASE NEGATIVE Leu/uL (NEGATIVE); URINE PROTEIN 100 mg/dL (<30 mg/dL); URINE UROBILINOGEN 0.2 E.U./dL (<1 E.U./dL)
[2018-08-21 16:43] LABS: URINE APPEARANCE TURBID (CLEAR); URINE COLOR YELLOW (YELLOW)
[2018-08-21 16:44] LABS: URINE BACTERIA TRACE /hpf; URINE RBC TNTC /hpf (0-2)
--- NOTE | 2018-08-21 18:08 | US ---
HISTORY: abdominal pain COMPARISON: None available. TECHNIQUE: Sonographic evaluation of the abdomen. FINDINGS: LIVER: Measures 12.3 cm in sagittal dimension. Echogenic liver may be seen in setting of hepatic parenchymal disease or fatty infiltration. No focal hepatic mass identified. The main portal vein appears patent with normal directional flow. No intrahepatic bile duct dilatation. GALLBLADDER: No gallstones. No gallbladder wall thickening. Negative sonographic Regan's sign as assessed by the mobile service rv technician. COMMON BILE DUCT: Measures 3 mm. PANCREAS: Not well visualized. RIGHT KIDNEY: Measures 12.0 x 4.5 x 5.0 cm. No obstructing calculus or hydronephrosis identified. LEFT KIDNEY: Measures 10.9 x 3.6 x 5.2 cm. No obstructing calculus or hydronephrosis identified. SPLEEN: Measures approximately 8.2 cm. AORTA: Limited views appear unremarkable. IVC: Limited views appear unremarkable. OTHER FINDINGS: None. IMPRESSION: Echogenic liver may be seen in setting of hepatic parenchymal disease or fatty infiltration. Intrahepatic biliary ductal dilatation.
[2018-08-21 21:07] VITALS: BP 110/64; PULSE 78; TEMP 98
--- NOTE | 2018-08-22 08:31 | US ---
Date of service: 08/21/2018 HISTORY: suprapubic pain COMPARISON: None available. TECHNIQUE: Transabdominal pelvic ultrasound. The patient declined transvaginal ultrasound. FINDINGS: Examination limited by bowel gas. UTERUS: Measures 7.6 x 4.4 x 5.0 cm. Anteverted. ENDOMETRIUM: Measures 5 mm in diameter. CERVIX: No cervical abnormality identified. RIGHT OVARY: Measures 3.7 x 2.4 x 3.0 cm. Blood flow is demonstrated. LEFT OVARY: Measures 1.9 x 2.9 x 3.3 cm. Blood flow is demonstrated. FREE FLUID: No significant free fluid noted. OTHER FINDINGS: None. IMPRESSION: Limited transabdominal ultrasound. No acute pathology identified. Preliminary impression was provided by [facility].
== END 2018-08-21 21:07 | disposition home or self-care (01) ==
LOC: ED 14:05
DX: R10.2 Pelvic and perineal pain (principal); F17.210 Nicotine dependence, cigarettes, uncomplicated

== ENCOUNTER 2018-12-25 10:12 | Emergency (ER) | payer MEDICAID ==
[2018-12-25 10:13] VITALS: BMI 18.8
[2018-12-25 10:40] VITALS: RESP 16; TEMP 98.5
--- NOTE | 2018-12-25 10:49 | ED PDOC ---
Arrival/HPI - General Historian: Patient - History of Present Illness Narrative History of Present Illness (Text): 12/25/18 11:08 Patient is a 23 yo female with a history of asthma and genital herpes who presents with diffuse body aches and generalized weakness. Patient states that on Saturday, she started to feel poorly. She states that she vomited once- bloody and clear. She says she again vomited this morning- clear. She has only been able to tolerate liquids. She also complains of headache, chest pain, inability to take a deep breath, epigastric pain, and b/l leg pain. She denies recent travel or sick contacts. She says this has never happened to her before. Time/Duration: < week Symptom Onset: Gradual Symptom Course: Worsening Activities at Onset: Rest <Dot Dao - Last Filed: 12/25/18 13:32> <Martin Childers - Last Filed: 12/25/18 14:07> - General Chief Complaint: Weakness/Neurological Deficit Time Seen by Provider: 12/25/18 10:48 Past Medical History - Provider Review Nursing Documentation Reviewed: Yes - Past History Past History: Non-Contributing - Infectious Disease Hx of Infectious Diseases: None - Cardiac Hx Cardiac Disorders: No - Pulmonary Hx Respiratory Disorders: Yes Hx Asthma: Yes - Neurological Hx Neurological Disorder: No - HEENT Hx HEENT Disorder: No - Renal Hx Renal Disorder: No Other/Comment: kidney infections - Endocrine/Metabolic Hx Endocrine Disorders: No - Hematological/Oncological Hx Blood Disorders: No - Integumentary Hx Dermatological Disorder: No - Musculoskeletal/Rheumatological Hx Musculoskeletal Disorders: No - Gastrointestinal Hx Gastrointestinal Disorders: No - Genitourinary/Gynecological Hx Genitourinary Disorders: Yes Hx Urinary Tract Infection: Yes Other/Comment: GENITAL HERPES'. right sided ovarian cyst - Psychiatric Hx Psychophysiologic Disorder: Yes Hx Anxiety: Yes Hx Depression: Yes Hx Substance Use: Yes ("weed") - Anesthesia Hx Anesthesia: No Hx Anesthesia Reactions: No Hx Malignant Hyperthermia: No <Dot Dao - Last Filed: 12/25/18 13:32> Family/Social History Smoking Status: Heavy Smoker > 10 Cigarettes Daily Hx Alcohol Use: Yes Hx Substance Use: Yes ("weed") <Dot Dao - Last Filed: 12/25/18 13:32> - Physician Review Nursing Documentation Reviewed: Yes Family/Social History: Unknown Family HX <Martin Childers - Last Filed: 12/25/18 14:07> Allergies/Home Meds <Dot Dao - Last Filed: 12/25/18 13:32> <Martin Childers - Last Filed: 12/25/18 14:07> Allergies/Adverse Reactions: Allergies ibuprofen [From Advil] Allergy (Verified 12/25/18 10:37) ANAPHYLAXIS Penicillins Allergy (Verified 12/12/16 11:36) ANAPHYLAXIS Home Medications: Home Meds Medication Instructions Recorded Confirmed No Known Home Med 06/07/17 11/17/17 Review of Systems - Review of Systems Constitutional: Fatigue, Fevers Eyes: Normal ENT: Normal Respiratory: Cough. absent: Wheezing Cardiovascular: Chest Pain. absent: Palpitations Gastrointestinal: Abdominal Pain, Nausea, Vomiting, Appetite Changes (decreased). absent: Constipation, Diarrhea Genitourinary Female: absent: Dysuria, Hematuria Musculoskeletal: Myalgias Skin: absent: Rash, Pruritis, Skin Lesions Neurological: Headache. absent: Dizziness, Focal Weakness Endocrine: Diaphoresis Hemo/Lymphatic: absent: Adenopathy <Dot Dao - Last Filed: 12/25/18 13:32> - Physician Review All systems were reviewed & negative as marked: Yes - Review of Systems Gastrointestinal: Appetite Changes <Martin Childers - Last Filed: 12/25/18 14:07> Physical Exam Vital Signs Reviewed: Yes Vital Signs Temp Pulse Resp BP Pulse Ox 12/25/18 10:39 98.5 F 82 16 110/80 100 Temperature: Afebrile Blood Pressure: Normal Pulse: Regular Respiratory Rate: Normal Appearance: Positive for: Non-Toxic, Comfortable Pain Distress: None Mental Status: Positive for: Alert and Oriented X 3 - Systems Exam Head: Present: Atraumatic, Normocephalic Pupils: Present: PERRL Extroacular Muscles: Present: EOMI Conjunctiva: Present: Normal Mouth: Present: Dry Pharnyx: Present: Normal Neck: Present: Normal Range of Motion. No: Meningeal Signs Respiratory/Chest: Present: Clear to Auscultation, Decreased Breath Sounds. No: Respiratory Distress, Accessory Muscle Use Cardiovascular: Present: Regular Rate and Rhythm, Normal S1, S2. No: Murmurs Abdomen: Present: Tenderness (mild). No: Distention Back: Present: Normal Inspection Upper Extremity: Present: Normal Inspection, Neurovascularly Intact Lower Extremity: Present: Normal Inspection, Tenderness (diffuse b/l), Neurovascularly Intact. No: Edema, CALF TENDERNESS Neurological: Present: GCS=15, CN II-XII Intact, Speech Normal Skin: Present: Warm, Dry, Normal Color Lymphatic: No: Cervical Adenopathy Psychiatric: Present: Alert, Oriented x 3, Normal Insight, Normal Concentration <Dot Dao - Last Filed: 12/25/18 13:32> Vital Signs Temp Pulse Resp BP Pulse Ox 12/25/18 10:39 98.5 F 82 16 110/80 100 <Martin Childers - Last Filed: 12/25/18 14:07> Medical Decision Making ED Course and Treatment: 12/25/18 11:04 CBC CMP, Mg, Phos Rapid flu UA Lipase Beta-HCG Re-evaluation Time: 13:33 Reassessment Condition: Improving,but remains with symptoms - Lab Interpretations I have reviewed the lab results: Yes Interpretation: No clinic. 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 23 year old F presents with chief complaint of diffuse body aches. Abdomen soft. After treatment, patient feels better, labs unremarkable. Discharge home, treat as viral illness at this time, instructed to return to ED for worsening pain, dyspnea, vomiting, or any other problem. - RAD Interpretation Radiology Orders: 12/25/18 11:24 CXR [CHEST PORTABLE] [RAD] Stat - Medication Orders Current Medication Orders: Sodium Chloride (Sodium Chloride 0.9%) 1,000 mls @ 999 mls/hr IV .Q1H1M STA Stop: 12/25/18 12:01 Last Admin: 12/25/18 11:27 Dose: 999 mls/hr eMAR Start Stop Document 12/25/18 11:27 MA (Rec: 12/25/18 11:27 MA [facility] [id number]) Intravenous Solution Start Date 12/25/18 Start Time 11:15 Discontinued Medications Acetaminophen (Tylenol 325mg Tab) 975 mg PO STAT STA Stop: 12/25/18 11:02 Last Admin: 12/25/18 11:18 Dose: 975 mg MAR Pain/Vitals Document 12/25/18 11:18 MA (Rec: 12/25/18 11:20 MA [facility] [id number]) Pain Reassessment Is This A Pain ReAssessment? Yes Sleep Is patient sleeping during reassessment? No Presence of Pain Presence of Pain Yes Pain Scale Used Protocol: PSCALES Pain Scale Used Numeric Location Pain Location Body Site Abdomen Description Constant Intensity 9 Scale Used Numeric Pain Behavior Rubbing Site Facial Grimacing <Martin Childers - Last Filed: 12/25/18 14:07> - Scribe Statement The provider has reviewed the documentation as recorded by the Scribe Tim Benítez All medical record entries made by the Scribe were at my direction and personally dictated by me. I have reviewed the chart and agree that the record accurately reflects my personal performance of the history, physical exam, medical decision making, and the department course for this patient. I have also personally directed, reviewed, and agree with the discharge instructions and disposition. <Martin Childers - Last Filed: 12/25/18 14:07> Disposition/Present on Arrival - Present on Arrival Any Indicators Present on Arrival: No History of DVT/PE: No History of Uncontrolled Diabetes: No Urinary Catheter: No History of Decub. Ulcer: No History Surgical Site Infection Following: None - Disposition Have Diagnosis and Disposition been Completed?: Yes Disposition Time: 13:34 Patient Plan: Discharge <Dot Dao - Last Filed: 12/25/18 13:32> <Martin Childers - Last Filed: 12/25/18 14:07> - Disposition Diagnosis: Systemic viral illness Disposition: HOME/ ROUTINE Condition: STABLE Discharge Instructions (ExitCare): Viral Syndrome (DC) Additional Instructions: Take Tylenol 650 mg every 6 hours as needed. Follow-up with your primary care physician, Dr. Diaz, within 3-5 days. Referrals: Yvan Diaz MD [Primary Care Provider] - Follow up with primary Forms: [employer] (Slovak)
[2018-12-25] MEDS ORDERED: Sodium Chloride 0.9% 1,000 ML IV STA (11:01)
[2018-12-25 11:36] LABS: ALB/GLOB RATIO 1.4 (1.1-1.8); ALBUMIN 5.1 g/dL (3.0-4.8); ALT/SGPT 23 U/L (7-56); AST/SGOT 30 U/L (14-36); BLOOD UREA NITROGEN 8 mg/dL (7-21); GFR NON-AFRICAN AMERICAN > 60; LIPASE 67 U/L (23-300)
[2018-12-25 11:37] LABS: BASO # 0.02 K/mm3 (0.0-2.0); BASO % 0.2 % (0.0-3.0); EOS # 0.3 (0.0-0.7); EOS % 3.6 % (1.5-5.0); LYMPH # 2.4 (1.2-3.4); MEAN CELL VOLUME 91.5 fl (80.0-105.0); MEAN CORPUSCULAR HEMOGLOBIN 31.2 pg (25.0-35.0); MEAN CORPUSCULAR HGB CONC 34.1 g/dl (31.0-37.0); MEAN PLATELET VOLUME 9.7 fl (7.0-11.0); MONO # 0.6 (0.1-0.6); MONO % 6.6 % (1.0-6.0); RBC 4.49 10^6/uL (3.5-6.1); RED CELL DISTRIBUTION WIDTH 14.1 % (11.5-14.5); WHITE BLOOD COUNT 8.4 10^3/uL (4.5-11.0)
--- NOTE | 2018-12-25 12:49 | RAD ---
Date of service: 12/25/2018 HISTORY: chest pain COMPARISON: 06/07/2017 TECHNIQUE: 1 view obtained. FINDINGS: LUNGS: No active pulmonary disease. PLEURA: No significant pleural effusion identified, no pneumothorax apparent. CARDIOVASCULAR: No aortic atherosclerotic calcification present. Normal cardiac size. No pulmonary vascular congestion. OSSEOUS STRUCTURES: No significant abnormalities. VISUALIZED UPPER ABDOMEN: Normal. OTHER FINDINGS: None. IMPRESSION: No active disease. No interval pathology noted.
[2018-12-25 12:57] LABS: PH,URINE 6.5 (4.7-8.0); URINE BILIRUBIN NEGATIVE (NEGATIVE); URINE BLOOD TRACE-INTACT (NEGATIVE); URINE GLUCOSE (UA) NEGATIVE (NEGATIVE); URINE LEUKOCYTE ESTERASE NEGATIVE Leu/uL (NEGATIVE); URINE PROTEIN 30 mg/dL (<30 mg/dL); URINE UROBILINOGEN 0.2 E.U./dL (<1 E.U./dL)
[2018-12-25 13:18] LABS: URINE APPEARANCE CLEAR (CLEAR); URINE COLOR YELLOW (YELLOW)
[2018-12-25 13:19] LABS: HCG,QUALITATIVE URINE NEGATIVE (NEGATIVE)
[2018-12-25 13:21] LABS: URINE BACTERIA MANY /hpf; URINE WBC 0 - 2 /hpf (0-6)
[2018-12-25 14:02] VITALS: BP 110/55; PULSE 69; O2SAT 99
== END 2018-12-25 14:02 | disposition home or self-care (01) ==
LOC: ED 10:12
DX: B34.9 Viral infection, unspecified (principal); F17.210 Nicotine dependence, cigarettes, uncomplicated
CPT/HCPCS: 71045; 80053; 81001; 81025; 83690; 83735; 84100; 84703; 85025; 87804; 99285; J7030